=== PATIENT | male | born 1980 | race Caucasian/White ===

== ENCOUNTER → 2022-11-13 | Outpatient (CLI) | payer OTHER ==
--- NOTE | 2022-11-13 16:32 | BD ---
EXAMINATION TYPE: Axial Bone Density DATE OF EXAM: 11/13/2022 COMPARISON: NONE CLINICAL HISTORY: 42 years year old Male. ICD-10 CODE: M81.0 osteoporosis Height: 68.5 IN Weight: 154 LBS FRAX RISK QUESTIONS: Secondary Osteoporosis: 2. Hyperthyroidism: YES Rheumatoid Arthritis: YES Current Tobacco Use: YES RISK FACTORS HISTORY OF: History of Wrist Fracture: YES MELANI When: RT WRIST AGE 13; LT WRIST AGE 18 Family History of Osteoporosis: YES MOTHER ; GRANDMOTHER Active: YES Diet low in dairy products/other sources of calcium: YES Lost more than 2 inches in height since high school: YES 3" MEDICATIONS: Thyroid Medications: YES Which medication: Levothyroxine How Lon YEARS Additional Medications: CALCIUM, LEVOTHYROXINE, EXAM MEASUREMENTS: Bone mineral densitometry was performed using the [employer]. Bone mineral density as measured about the Lumbar spine is: ----- L1-L4(G/cm2): 0.913 T Score Values are as follows: ----- L1: -2.7 ----- L2: -2.3 ----- L3: -1.6 ----- L4: -2.4 ----- L1-L4: -2.2 Bone mineral density BASELINE Bone mineral density about the R hip (g/cm2): 0.737 Bone mineral density about the L hip (g/cm2): 0.779 T Score values are as follows: -----R Neck: -2.2 -----L Neck: -1.9 -----R Total: -1.6 -----L Total: -1.6 Bone mineral density BASELINE FRAX%s: The graph provided illustrates a 4.6 chance for a major osteoporotic fx and a 1.6 chance for the hips probability for fx in 10 years time. IMPRESSION: Osteopenia (T Score between -2.5 and -1). There is slightly increased risk of fracture and the patient may be considered for treatment. Re-Screen 2-5 years. NOTE: T-SCORE=SD OF THE YOUNG ADULT MEAN.
== END | disposition home or self-care (01) ==
LOC: RADBDWWP 08:38
PROVIDERS: ATTEND Internal Medicine
DX: E05.90 Thyrotoxicosis, unspecified without thyrotoxic crisis or storm (principal); M81.0 Age-related osteoporosis without current pathological fracture; M06.9 Rheumatoid arthritis, unspecified
CPT/HCPCS: 77080

== ENCOUNTER → 2023-02-07 | Outpatient (CLI) | payer OTHER ==
--- NOTE | 2023-02-07 11:22 | MR ---
EXAMINATION TYPE: MR brain wo con DATE OF EXAM: 02/07/2023 COMPARISON: None HISTORY: Vertigo. TECHNIQUE: Multiplanar, multisequence images of the brain and brainstem is performed without contrast. FINDINGS: The ventricles, basal cisterns and sulci over the convexities are within normal limits and there is n o mass effect or shift of midline structures. No abnormal signal intensity is seen throughout the brain parenchyma. Based on diffusion-weighted imaging there is no diffusion restriction or acute ischemic event. The T1-weighted sagittal images midline structures including the craniovertebral junction relationshi ps appear normal. The posterior fossa including the brainstem, fourth ventricle and cerebellar pontine angles appear no rmal. Intraorbital contents appear normal and symmetric. There are mild chronic inflammatory changes in the maxillary sinuses. The mastoid air cells are well aerated. IMPRESSION: Mild chronic inflammatory changes in the maxillary sinuses with no other significant abnormality seen .
== END | disposition home or self-care (01) ==
LOC: RADMRIMAIN 09:50
PROVIDERS: ATTEND Internal Medicine
DX: J34.89 Other specified disorders of nose and nasal sinuses (principal); R42 Dizziness and giddiness
CPT/HCPCS: 70553; A9585

== ENCOUNTER → 2023-02-12 | Outpatient (CLI) | payer OTHER ==
[2023-02-12 10:34] LABS: Basophils % (A) 0 %; Eosinophils # (A) 0.5 k/uL (0-0.7); Eosinophils % (A) 4 %; HCT 45.5 % (39.0-53.0); Lymphocytes # (A) 2.7 k/uL (1.0-4.8); Lymphocytes % (A) 21 %; MCH 33.1 pg (25.0-35.0); MCV 100.3 fL (80.0-100.0); Macrocytosis Slight; Mean Platelet Volume 7.7; Monocytes # (A) 0.5 k/uL (0-1.0); Monocytes % (A) 4 %; Neutrophils # (A) 8.9 k/uL (1.3-7.7); Neutrophils % (A) 69 %; Platelet Count 241 k/uL (150-450); RBC 4.54 m/uL (4.30-5.90); WBC 12.8 k/uL (3.8-10.6)
[2023-02-12 16:07] LABS: Protein, Total 6.8 g/dL (6.2-8.2)
[2023-02-12 16:22] LABS: LDL Cholesterol,Calculated 91.3 mg/dL (0.0-131.0)
[2023-02-12 16:36] LABS: ALT 17 U/L (10-49); AST 16 U/L (14-35); African American GFR (CKD) 122.5 (60.0-200.0); Albumin 4.5 g/dL (3.8-4.9); Albumin/Globulin Ratio 2.05 (1.60-3.17); Alkaline Phosphatase 92 U/L (41-126); BUN/Creat Ratio 8.78 Ratio (12.00-20.00); Blood Urea Nitrogen 7.9 mg/dL (9.0-27.0); Calcium 9.7 mg/dL (8.7-10.3); Carbon Dioxide 30.3 mmol/L (20.0-27.5); Chloride 106 mmol/L (96-109); Globulin 2.2 g/dL (1.6-3.3); Glucose 110 mg/dL (70-110); Non-African American GFR(CKD) 105.7 (60.0-200.0); Sodium 144 mmol/L (135-145); Total Bilirubin <0.15 mg/dL (0.30-1.20); Total Protein 6.7 g/dL (6.2-8.2)
[2023-02-13 14:46] LABS: Albumin 4.37 g/dL (3.80-4.90); Gamma Globulin 0.69 g/dL (0.70-1.50)
== END | disposition home or self-care (01) ==
LOC: LABWHC1 09:36
PROVIDERS: ATTEND Internal Medicine
DX: Z00.00 Encounter for general adult medical examination without abnormal findings (principal); E03.9 Hypothyroidism, unspecified; M85.80 Other specified disorders of bone density and structure, unspecified site; D72.829 Elevated white blood cell count, unspecified
CPT/HCPCS: 36415; 80053; 80061; 82306; 84165; 84439; 84443; 85025; 86038

== ENCOUNTER → 2023-05-08 | Outpatient (CLI) | payer OTHER ==
--- NOTE | 2023-05-08 21:16 | MR ---
EXAMINATION TYPE: MR lumbar spine wo con DATE OF EXAM: 05/08/2023 8:34 PM COMPARISON: None. CLINICAL INDICATION: Male, 42 years old with history of M54.50; PHH, Low back pain that radiates down legs. TECHNIQUE: Multi planar, multi sequence imaging was performed utilizing: T1-weighted, T2-weighted, a nd turbo inversion recovery imaging of the lumbar spine. IV Contrast: cc . None. FINDINGS: Alignment: The lumbar vertebral bodies have preserved heights and alignment. Cord: The conus medullaris and the distal spinal cord appear unremarkable with regards to their signa l intensity and morphology. Bones/Discs: Multilevel disc degeneration changes with disc space narrowing worse at L5-S1 scattered osteophyte formation is also present. There is facet joint arthropathy throughout the spine. T12-L1: No evidence of significant spinal canal stenosis or neural foraminal stenosis. L1-L2: No evidence of significant spinal canal stenosis or neural foraminal stenosis. L2-L3: No evidence of significant spinal canal stenosis or neural foraminal stenosis. L3-L4: No evidence of significant spinal canal stenosis or neural foraminal stenosis. L4-L5: No evidence of significant spinal canal stenosis or neural foraminal stenosis. L5-S1: Left central disc protrusion without significant spinal canal stenosis. The neural foramen are patent. No significant spinal canal or neural foraminal stenosis in the remainder of the visualized levels. Other findings: None. IMPRESSION: 1. Left central disc herniation at L5-S1 without significant spinal canal or neural foraminal stenos is. 2. Mild multilevel disc degeneration changes.
== END | disposition home or self-care (01) ==
LOC: RADMRIMAIN 19:57
PROVIDERS: ATTEND Internal Medicine
DX: M51.37 Other intervertebral disc degeneration, lumbosacral region (principal)
CPT/HCPCS: 72148

== ENCOUNTER 2024-07-20 14:21 | Emergency (ER) | payer OTHER ==
[2024-07-20 14:33] VITALS: RESP 18
--- NOTE | 2024-07-20 15:13 | ED ---
Skin/Abscess/FB HPI - General Source: patient, RN notes reviewed Mode of arrival: ambulatory Limitations: no limitations <Justyna Pace - Last Filed: 07/20/24 15:12> <Raphael Jaffe - Last Filed: 07/20/24 15:56> - General Chief complaint: Skin/Abscess/Foreign Body Stated complaint: R knee abcess Time Seen by Provider: 07/20/24 14:55 - History of Present Illness Initial comments: Quick Note: This is a 44-year-old male who presents to the emergency department for a bump to his right knee. States that it has been there for months and is changing in size. It was much bigger a few days ago, but states that the pain is making it difficult for him to ambulate. He has not yet had this evaluated. (Justyna Pace) 44-year-old male with pain and swelling to the right anterior knee. Symptoms have been present for several months and are generally improving. No fever. Patient states that is irritating when he ambulates but he is able to ambulate. No pain in the knee itself this is located anterior to the knee. (Raphael Jaffe) - Related Data Allergies Allergy/AdvReac Type Severity Reaction Status Date / Time diphenhydramine Allergy Hallucinati Verified 07/20/24 14:33 [From Benadryl] ons promethazine [From Phenergan] Allergy Hallucinati Verified 07/20/24 14:33 ons Penicillins AdvReac Anaphylaxis Verified 07/20/24 14:33 Review of Systems ROS Other: All systems not noted in ROS Statement are negative. <Justyna Pace - Last Filed: 07/20/24 15:12> ROS Other: All systems not noted in ROS Statement are negative. <Raphael Jaffe - Last Filed: 07/20/24 15:56> ROS Statement: Those systems with pertinent positive or pertinent negative responses have been documented in the HPI. Past Medical History Past Medical History: Chest Pain / Angina, Thyroid Disorder Additional Past Medical History / Comment(s): migraine, osteoprosis, djd. History of Any Multi-Drug Resistant Organisms: None Reported Past Surgical History: Appendectomy, Orthopedic Surgery Past Psychological History: ADD/ADHD, Bipolar, Depression, Panic Disorder Smoking Status: Current every day smoker Past Alcohol Use History: None Reported Past Drug Use History: Marijuana <Justyna Pace - Last Filed: 07/20/24 15:12> General Exam Limitations: no limitations <Justyna Pace - Last Filed: 07/20/24 15:12> General appearance: alert, in no apparent distress Head exam: Present: atraumatic, normocephalic Eye exam: Present: normal appearance, PERRL ENT exam: Present: normal exam Neck exam: Present: normal inspection. Absent: tenderness, meningismus Respiratory exam: Present: normal lung sounds bilaterally. Absent: respiratory distress, wheezes GI/Abdominal exam: Present: soft. Absent: distended Extremities exam: Present: other (There is a approximately 1 cm round nodule on the anterior surface of the right knee. This does not appear to be attached to the tendon it is freely mobile, firm. No erythema. No skin changes.) <Raphael Jaffe N - Last Filed: 07/20/24 15:56> - General Exam Comments Initial Comments: Visual Physical Exam Vital signs reviewed General: Well-appearing, nontoxic, no acute distress. Head: Normocephalic, atraumatic Eyes: PERRLA, EOMI ENT: Airway patent Chest: Nonlabored breathing Skin: No visual rash, normal skin tone Neuro: Alert and oriented 3 Musculoskeletal: No gross abnormalities (Justyna Pace) Course Vital Signs 07/20/24 14:31 Temperature 98 F Pulse Rate 108 H Respiratory 18 Rate Blood Pressure 135/87 O2 Sat by Pulse 98 Oximetry Medical Decision Making <Justyna Pace - Last Filed: 07/20/24 15:12> <Raphael Jaffe N - Last Filed: 07/20/24 15:56> - Medical Decision Making I performed the QuickNote portion of this chart. Signed Justyna Pace PA-C. (Justyna Pace) Was pt. sent in by a medical professional or institution (MARICARMEN Jacobson, PALLIATIVE CARE NURSE PRACTITIONER, urgent care, hospital, or skilled nursing...) When possible be specific @ -No Did you speak to anyone other than the patient for history (EMS, parent, family, police, friend...)? What history was obtained from this source @ -No Did you review nursing and triage notes (agree or disagree)? Why? @ -I reviewed and agree with nursing and triage notes Were old charts reviewed (outside hosp., previous admission, EMS record, old EKG, old radiological studies, urgent care reports/EKG's, skilled nursing records)? Report findings @ -No old charts were reviewed Differential musculoskeletal EKG interpreted by me (3pts min.). @ -As above X-rays interpreted by me (1pt min.). @ -None done CT interpreted by me (1pt min.). @ -None done U/S interpreted by me (1pt. min.). @ -None done What testing was considered but not performed or refused? (CT, X-rays, U/S, labs)? Why? @ -None What meds were considered but not given or refused? Why? @ -None Did you discuss the management of the patient with other professionals (professionals i.e. , PA, PALLIATIVE CARE NURSE PRACTITIONER, lab, RT, psych nurse, child protective services social worker, staff appraiser, teacher, chief strategy officer, binder caser)? Give summary @ -No Was smoking cessation discussed for >3mins.? @ -No Was critical care preformed (if so, how long)? @ -No Were there social determinants of health that impacted care today? How? ( Homelessness, low income, unemployed, alcoholism, drug addiction, transportation, low edu. Level, literacy, decrease access to med. care, group home, rehab)? @ -No Was there de-escalation of care discussed even if they declined (Discuss DNR or withdrawal of care, Hospice)? DNR status @ -No What co-morbidities impacted this encounter? (DM, HTN, Smoking, COPD, CAD, Cancer, CVA, ARF, Chemo, Hep., AIDS, mental health diagnosis, sleep apnea, morbid obesity)? @ -None Was patient admitted / discharged? Hospital course, mention meds given and route, prescriptions, significant lab abnormalities, going to OR and other pertinent info. @ -44-year-old male with a lump on the anterior surface of the right knee. No overlying skin changes to suspect infection. The joint is freely movable. Distal pulses are intact. Patient states overall this lump is shrinking. I do feel he will benefit from orthopedic evaluation. Undiagnosed new problem with uncertain prognosis? @ -No Drug Therapy requiring intensive monitoring for toxicity (Heparin, Nitro, Insulin, Cardizem)? @ -No Were any procedures done? @ -No Diagnosis/symptom? @Right knee mass Acute, or Chronic, or Acute on Chronic? @ -Default Uncomplicated (without systemic symptoms) or Complicated (systemic symptoms)? @ -Default Side effects of treatment? @ -No Exacerbation, Progression, or Severe Exacerbation? @ -No Poses a threat to life or bodily function? How? (Chest pain, [place], [place], pneumonia, PE, COPD, DKA, ARF, appy, cholecystitis, CVA, Diverticulitis, Homicidal, Suicidal, threat to staff... and all critical care pts) @ -No (Raphael Jaffe) Disposition <Justyna Pace - Last Filed: 07/20/24 15:12> Is patient prescribed a controlled substance at d/c from ED?: No Time of Disposition: 15:55 <Raphael Jaffe - Last Filed: 07/20/24 15:56> Clinical Impression: Bursitis Disposition: HOME SELF-CARE Condition: Good Instructions (If sedation given, give patient instructions): Knee Bursitis (ED) Referrals: None,Stated [Primary Care Provider] - 1-2 days Kishan Dorantes DO [Doctor of Osteopathic Medicine] - 1-2 days
[2024-07-20 16:23] VITALS: BP 137/89; PULSE 87; TEMP 98
== END 2024-07-20 16:23 | disposition home or self-care (01) ==
LOC: EC 14:21
CPT/HCPCS: 99283

== ENCOUNTER 2025-03-08 14:55 | Emergency (ER) | payer OTHER ==
[2025-03-08 15:04] VITALS: BP 127/81; PULSE 116; RESP 16; TEMP 98
--- NOTE | 2025-03-08 15:39 | ED ---
General Adult HPI - General Source: patient, RN notes reviewed Mode of arrival: wheelchair Limitations: no limitations <Alejandrina Milan - Last Filed: 03/08/25 15:37> <Emre Layton - Last Filed: 03/08/25 17:51> - General Chief complaint: Chest Pain Stated complaint: heart issue Time Seen by Provider: 03/08/25 15:10 - History of Present Illness Initial comments: 44-year-old male presents emergency department for complaints of generalized bodyaches and chest pain that started this morning. He endorses difficulty in breathing associated with the chest pain described as a pressure. (Alejandrina Milan) This is a 44-year-old male who presents to the emergency department stating that he has all sorts of joint issues. Patient states today he has it in both shoulders and arms and he states he has some pain across the front of his chest that he states only occurs if he takes a deep breath moves or pushes on it. Patient states the rest of his body feels very achy today as well. Patient states is definitely in the bones this is something he typically deals with. Patient denies any shortness of breath. Patient denies any diaphoretic episode. Patient states he was mildly nauseous when it really hurts bad. Patient denies any radiation of the pain. Patient states the pain is gone completely if he just remains at rest and not taking any deep breaths (Emre Layton) - Related Data Previous Rx's Medication Instructions Recorded Oseltamivir [Tamiflu] 75 mg PO Q12HR #10 cap 03/08/25 Allergies Allergy/AdvReac Type Severity Reaction Status Date / Time diphenhydramine Allergy Hallucinati Verified 03/08/25 15:04 [From Benadryl] ons promethazine [From Phenergan] Allergy Hallucinati Verified 03/08/25 15:04 ons Penicillins AdvReac Anaphylaxis Verified 03/08/25 15:04 Review of Systems ROS Other: All systems not noted in ROS Statement are negative. <Alejandrina Milan - Last Filed: 03/08/25 15:37> ROS Other: All systems not noted in ROS Statement are negative. <Emre Layton - Last Filed: 03/08/25 17:51> ROS Statement: Those systems with pertinent positive or pertinent negative responses have been documented in the HPI. Past Medical History Past Medical History: Chest Pain / Angina, CVA/TIA, Thyroid Disorder Additional Past Medical History / Comment(s): migraine, osteoprosis, djd. History of Any Multi-Drug Resistant Organisms: None Reported Past Surgical History: Appendectomy, Orthopedic Surgery Past Psychological History: ADD/ADHD, Bipolar, Depression, Panic Disorder Smoking Status: Current every day smoker Past Alcohol Use History: None Reported Past Drug Use History: Marijuana <Alejandrina Milan - Last Filed: 03/08/25 15:37> General Exam Limitations: no limitations <Alejandrina Milan - Last Filed: 03/08/25 15:37> <Emre Layton - Last Filed: 03/08/25 17:51> - General Exam Comments Initial Comments: Visual Physical Exam Vital signs reviewed General: Well-appearing, nontoxic, no acute distress. Head: Normocephalic, atraumatic Eyes: PERRLA, EOMI ENT: Airway patent Chest: Nonlabored breathing Skin: No visual rash, normal skin tone Neuro: Alert and oriented 3 Musculoskeletal: No gross abnormalities (Cosmoeler,Alejandrina) GENERAL: Patient is well-developed and well-nourished. Patient is nontoxic and well- hydrated and is in mild distress. ENT: Neck is soft and supple. No significant lymphadenopathy is noted. Oropharynx is clear. Moist mucous membranes. Neck has full range of motion without eliciting any pain. EYES: The sclera were anicteric and conjunctiva were pink and moist. Extraocular movements were intact and pupils were equal round and reactive to light. Eyelids were unremarkable. PULMONARY: Unlabored respirations. Good breath sounds bilaterally. No audible rales rhonchi or wheezing was noted. CARDIOVASCULAR: There is a regular rate and rhythm without any murmurs gallops or rubs. Patient has a chest pain that is reproducible ABDOMEN: Soft and nontender with normal bowel sounds. SKIN: Skin is clear with no lesions or rashes and otherwise unremarkable. NEUROLOGIC: Patient is alert and oriented x3. Cranial nerves II through XII are grossly intact. Motor and sensory are also intact. Normal speech, volume and content. Symmetrical smile. MUSCULOSKELETAL: Normal extremities with adequate strength and full range of motion. LYMPHATICS: No significant lymphadenopathy is noted PSYCHIATRIC: Normal psychiatric evaluation. (Emre Layton) Course Vital Signs 03/08/25 15:02 Temperature 98.0 F Pulse Rate 116 H Respiratory 16 Rate Blood Pressure 127/81 O2 Sat by Pulse 99 Oximetry Medical Decision Making <Alejandrina Milan - Last Filed: 03/08/25 15:37> - Lab Data Result diagrams: 03/08/25 16:38 03/08/25 16:38 <LaytonEmre steele - Last Filed: 03/08/25 17:51> - Medical Decision Making I completed the quick note portion of this chart signed Alejandrina Milan PA-C (Alejandrina Milan) EKG is interpreted by myself and EKG shows sinus tachycardia at 105 bpm there is an occasional PVC IN interval is 125 QRS is 89 QT interval 322 QTc is 383. Patient's EKG shows no ST segment elevation or depression. Was pt. sent in by a medical professional or institution (MARICARMEN Jacobson, TECHNICIAN PREVENTATIVE MEDICINE, urgent care, hospital, or usp...) When possible be specific @ -No Did you speak to anyone other than the patient for history (EMS, parent, family, police, friend...)? What history was obtained from this source @ -No Did you review nursing and triage notes (agree or disagree)? Why? @ -I reviewed and agree with nursing and triage notes Were old charts reviewed (outside hosp., previous admission, EMS record, old EKG, old radiological studies, urgent care reports/EKG's, usp records)? Report findings @ -No old charts were reviewed Differential Diagnosis? @ -Influenza A, influenza B, COVID, RSV, pneumonia, bronchitis, not an all- inclusive list EKG interpreted by me (3pts min.). @ -As above X-rays interpreted by me (1pt min.). @ -Chest x-ray shows no acute abnormality CT interpreted by me (1pt min.). @ -None done U/S interpreted by me (1pt. min.). @ -None done What testing was considered but not performed or refused? (CT, X-rays, U/S, labs)? Why? @ -None What meds were considered but not given or refused? Why? @ -None Did you discuss the management of the patient with other professionals (professionals i.e. MARICARMEN Jacobson, TECHNICIAN PREVENTATIVE MEDICINE, lab, RT, psych nurse, perinatal social worker, blue line hanger, teacher, chief strategy officer, complex case manager)? Give summary @ -No Was smoking cessation discussed for >3mins.? @ -No Was critical care preformed (if so, how long)? @ -No Were there social determinants of health that impacted care today? How? (Homelessness, low income, unemployed, alcoholism, drug addiction, transportation, low edu. Level, literacy, decrease access to med. care, penitentiary, rehab)? @ -No Was there de-escalation of care discussed even if they declined (Discuss DNR or withdrawal of care, Hospice)? DNR status @ -No What co-morbidities impacted this encounter? (DM, HTN, Smoking, COPD, CAD, Cancer, CVA, ARF, Chemo, Hep., AIDS, mental health diagnosis, sleep apnea, morbid obesity)? @ -None Was patient admitted / discharged? Hospital course, mention meds given and route, prescriptions, significant lab abnormalities, going to OR and other pertinent info. @ -Patient was given Toradol and droperidol for the nausea and was feeling considerably better. Patient was influenza B positive Undiagnosed new problem with uncertain prognosis? @ -No Drug Therapy requiring intensive monitoring for toxicity (Heparin, Nitro, Insulin, Cardizem)? @ -No Were any procedures done? @ -No Diagnosis/symptom? @ -Influenza B Acute, or Chronic, or Acute on Chronic? @ -Acute Uncomplicated (without systemic symptoms) or Complicated (systemic symptoms)? @ -Uncomplicated Side effects of treatment? @ -No Exacerbation, Progression, or Severe Exacerbation? @ -No Poses a threat to life or bodily function? How? (Chest pain, [place], [place], pneumonia, PE, COPD, DKA, ARF, appy, cholecystitis, CVA, Diverticulitis, Homicidal, Suicidal, threat to staff... and all critical care pts) @ -No (Emre Layton) - Lab Data Lab Results 03/08/25 03/08/25 03/08/25 Range/Units 15:15 16:38 16:38 WBC 8.39 (4.50-10.00) 10*3/uL RBC 4.36 L (4.40-5.60) 10*6/uL Hgb 14.4 (13.0-17.0) g/dL Hct 41.8 (39.6-50.0) % MCV 95.9 (80.0-97.0) fL MCH 33.0 H (27.0-32.0) pg MCHC 34.4 (32.0-37.0) g/dL Plt Count 233 (140-440) 10*3/uL MPV 9.6 (9.5-12.2) fL Immature Gran % (Auto) 0.2 % Neutrophils % 83.6 % Lymphocytes % 8.6 % Monocytes % 6.7 % Eosinophils % 0.1 % Basophils % 0.8 % Immature Gran # 0.02 (0.00-0.04) 10*3/uL Neutrophils # 7.01 (1.80-7.70) 10*3/uL Lymphocytes # 0.72 L (0.90-5.00) 10*3/uL Monocytes # 0.56 (0.20-1.00) 10*3/uL Eosinophils # 0.01 L (0.04-0.35) 10*3/uL Basophils # 0.07 (0.00-0.10) 10*3/uL PT 11.5 (10.0-12.5) sec INR 1.0 (<1.2) APTT 28.5 (22.0-30.0) sec Sodium (137-145) mmol/L Potassium (3.5-5.1) mmol/L Chloride (98-107) mmol/L Carbon Dioxide (22-30) mmol/L Anion Gap mmol/L BUN (9-20) mg/dL Creatinine (0.66-1.25) mg/dL Est GFR (CKD-EPI)AfAm (>60 ml/min/1.73 sqM) Est GFR (CKD-EPI)NonAf (>60 ml/min/1.73 sqM) Glucose (74-99) mg/dL Calcium (8.4-10.2) mg/dL Magnesium (1.6-2.3) mg/dL Total Bilirubin (0.2-1.3) mg/dL AST (17-59) U/L ALT (4-49) U/L Alkaline Phosphatase (38-126) U/L Troponin I (0.000-0.034) ng/mL Total Protein (6.3-8.2) g/dL Albumin (3.5-5.0) g/dL Lipase (23-300) U/L Influenza Type A (PCR) Not Detected (Not Detectd) Influenza Type B (PCR) Detected A (Not Detectd) RSV (PCR) Not Detected (Not Detectd) SARS-CoV-2 (PCR) Not Detected (Not Detectd) 03/08/25 03/08/25 Range/Units 16:38 16:38 WBC (4.50-10.00) 10*3/uL RBC (4.40-5.60) 10*6/uL Hgb (13.0-17.0) g/dL Hct (39.6-50.0) % MCV (80.0-97.0) fL MCH (27.0-32.0) pg MCHC (32.0-37.0) g/dL Plt Count (140-440) 10*3/uL MPV (9.5-12.2) fL Immature Gran % (Auto) % Neutrophils % % Lymphocytes % % Monocytes % % Eosinophils % % Basophils % % Immature Gran # (0.00-0.04) 10*3/uL Neutrophils # (1.80-7.70) 10*3/uL Lymphocytes # (0.90-5.00) 10*3/uL Monocytes # (0.20-1.00) 10*3/uL Eosinophils # (0.04-0.35) 10*3/uL Basophils # (0.00-0.10) 10*3/uL PT (10.0-12.5) sec INR (<1.2) APTT (22.0-30.0) sec Sodium 136 L (137-145) mmol/L Potassium 4.0 (3.5-5.1) mmol/L Chloride 101 (98-107) mmol/L Carbon Dioxide 24 (22-30) mmol/L Anion Gap 11 mmol/L BUN 12 (9-20) mg/dL Creatinine 0.73 (0.66-1.25) mg/dL Est GFR (CKD-EPI)AfAm >90 (>60 ml/min/1.73 sqM) Est GFR (CKD-EPI)NonAf >90 (>60 ml/min/1.73 sqM) Glucose 118 H (74-99) mg/dL Calcium 9.6 (8.4-10.2) mg/dL Magnesium 2.0 (1.6-2.3) mg/dL Total Bilirubin 0.3 (0.2-1.3) mg/dL AST 19 (17-59) U/L ALT 16 (4-49) U/L Alkaline Phosphatase 70 (38-126) U/L Troponin I <0.012 (0.000-0.034) ng/mL Total Protein 6.8 (6.3-8.2) g/dL Albumin 4.3 (3.5-5.0) g/dL Lipase 50 (23-300) U/L Influenza Type A (PCR) (Not Detectd) Influenza Type B (PCR) (Not Detectd) RSV (PCR) (Not Detectd) SARS-CoV-2 (PCR) (Not Detectd) Disposition <Alejandrina Milan - Last Filed: 03/08/25 15:37> Is patient prescribed a controlled substance at d/c from ED?: No <Emre Layton - Last Filed: 03/08/25 17:51> Clinical Impression: Influenza B Disposition: HOME SELF-CARE Condition: Good Instructions (If sedation given, give patient instructions): Influenza (ED) Prescriptions: Oseltamivir [Tamiflu] 75 mg PO Q12HR #10 cap Referrals: None,Stated [Primary Care Provider] - 1-2 days
[2025-03-08 16:09] LABS: Influenza A Not Detected (Not Detectd); Influenza B Detected (Not Detectd); RSV Not Detected (Not Detectd)
--- NOTE | 2025-03-08 16:23 | XR ---
EXAMINATION TYPE: XR chest 2V DATE OF EXAM: 03/08/2025 4:20 PM COMPARISON: Chest radiograph 02/02/2014 TECHNIQUE: XR chest 2V Frontal and lateral views of the chest. CLINICAL INDICATION:Male, 44 years old with history of Chest Pain; FINDINGS: Lungs/Pleura: There is no evidence of pleural effusion, focal consolidation, or pneumothorax. Pulmonary vascularity: Unremarkable. Heart/mediastinum: Cardiomediastinal silhouette is unremarkable. Musculoskeletal: No acute osseous pathology. IMPRESSION: No acute cardiopulmonary disease/process. [facility], , 03/08/2025 4:21 PM
[2025-03-08 16:52] LABS: Basophils # (A) 0.07 10*3/uL (0.00-0.10); Basophils % (A) 0.8 %; Eosinophils # (A) 0.01 10*3/uL (0.04-0.35); Eosinophils % (A) 0.1 %; HCT 41.8 % (39.6-50.0); HGB 14.4 g/dL (13.0-17.0); Lymphocytes # (A) 0.72 10*3/uL (0.90-5.00); Lymphocytes % (A) 8.6 %; MCHC 34.4 g/dL (32.0-37.0); MCV 95.9 fL (80.0-97.0); Mean Platelet Volume 9.6 fL (9.5-12.2); Monocytes # (A) 0.56 10*3/uL (0.20-1.00); Monocytes % (A) 6.7 %; Neutrophils # (A) 7.01 10*3/uL (1.80-7.70); Neutrophils % (A) 83.6 %; Platelet Count 233 10*3/uL (140-440); RBC 4.36 10*6/uL (4.40-5.60); RDW 13.9 % (11.5-14.5); WBC 8.39 10*3/uL (4.50-10.00)
[2025-03-08] MEDS: droPERidol 5 MG/2 ML VIAL IVP ONE (16:59)
[2025-03-08] MEDS: KETOROLAC 15 MG/ML 1 ML VIAL IVP STA (16:59)
[2025-03-08 17:05] LABS: Partial Thromboplastin Time 28.5 sec (22.0-30.0); Prothrombin Time 11.5 sec (10.0-12.5)
[2025-03-08 17:08] LABS: ALT 16 U/L (4-49); AST 19 U/L (17-59); African American GFR (CKD) >90 (>60 ml/min/1.73 sqM); Albumin 4.3 g/dL (3.5-5.0); Alkaline Phosphatase 70 U/L (38-126); Anion Gap 11 mmol/L; Blood Urea Nitrogen 12 mg/dL (9-20); Calcium 9.6 mg/dL (8.4-10.2); Carbon Dioxide 24 mmol/L (22-30); Chloride 101 mmol/L (98-107); Glucose 118 mg/dL (74-99); Lipase 50 U/L (23-300); Non-African American GFR(CKD) >90 (>60 ml/min/1.73 sqM); Sodium 136 mmol/L (137-145); Total Bilirubin 0.3 mg/dL (0.2-1.3); Total Protein 6.8 g/dL (6.3-8.2)
== END 2025-03-08 18:10 | disposition home or self-care (01) ==
LOC: EC 14:55
DX: J10.1 Influenza due to other identified influenza virus with other respiratory manifestations (principal); F17.200 Nicotine dependence, unspecified, uncomplicated; Z88.0 Allergy status to penicillin; Z88.5 Allergy status to narcotic agent; Z88.8 Allergy status to other drugs, medicaments and biological substances
CPT/HCPCS: 36415; 93005; 80053; 83690; 83735; 84484; 85025; 85610; 85730; 87636; 71046; 99285; 96374; 96375; J1885; J1790